=== PATIENT | female | born 1970 | race Caucasian/White ===

== ENCOUNTER 2017-06-17 06:54 | Day surgery (SDC) | payer BC, OTHER ==
[2017-06-17] MEDS ORDERED: LIDOCAINE 2% MDV 20 ML VIAL As Ordered (07:01)
[2017-06-17] MEDS ORDERED: PROPOFOL 200 MG/20 ML VIAL As Ordered (07:01)
[2017-06-17] MEDS: NS 1,000 ML IV (07:08)
== END 2017-06-17 08:20 | disposition home or self-care (01) ==
LOC: M OPP 06:54
DX: R19.4 Change in bowel habit (principal); Z80.0 Family history of malignant neoplasm of digestive organs; D12.3 Benign neoplasm of transverse colon; B00.9 Herpesviral infection, unspecified
CPT/HCPCS: 45380

== ENCOUNTER → 2019-03-20 | Outpatient (CLI) | payer OTHER ==
[~2019-03-20] MED LIST: VITA500T17 PO
--- NOTE | 2019-03-20 10:56 | REPPI ---
INDICATION: T-spine pain PROCEDURE: Plain film study of the cervical spine includes AP lateral and oblique views COMPARISON STUDIES: No prior similar studies FINDINGS: There is [id number] multilevel degenerative disc disease. Vertebral heights and disc heights appear preserved. No fracture or malalignment. The cranial vertebral junction appears unremarkable. On the oblique views, no definite significant foraminal stenosis identified. IMPRESSION: No acute findings or subluxation. No fracture. Essentially normal for age examination. Electronically Signed by Drew Brink MD 03/20/2019 10:46 A
--- NOTE | 2019-03-21 01:59 | REPPI ---
Clinical: thoracic back pain. Technique: AP, lateral, and swimmers views. Findings: Alignment and kyphosis is maintained. Vertebral bodies intact. No acute fracture / compression injury or subluxation. No degenerative changes. Paravertebral soft tissues are normal. Impression: Age-appropriate thoracic spine series. Electronically Signed by Rich Foster MD 03/21/2019 01:50 A
== END ==
LOC: M PLAIMG 09:55
PROVIDERS: ATTEND Physician Assistant
DX: M54.2 Cervicalgia (principal); M54.6 Pain in thoracic spine

== ENCOUNTER → 2020-03-11 | Outpatient (CLI) | payer OTHER ==
--- NOTE | 2020-03-11 23:35 | ECWPNPC ---
PATIENT NAME: GLORIA CORNEJO : 1970 GENDER: FEMALE VISIT DATE: 03/11/2020 DISCHARGE DATE: 03/11/20 0000 VISIT LOCKED DATE TIME: PHYSICIAN: CORNELIUS CROCKER PHYSICIAN PAGER NO: ACTIVE RESOURCE: CORNELIUS CROCKER REASON FOR APPOINTMENT 1. PAIN IN T-SPINE/SCAPULA HISTORY OF PRESENT ILLNESS DEPRESSION SCREENING: PHQ-2 (2015 EDITION) LITTLE INTEREST OR PLEASURE IN DOING THINGS?NOT AT ALL FEELING DOWN, DEPRESSED, OR HOPELESS?NOT AT ALL TOTAL SCORE0 GENERAL: 49-YEAR-OLD FEMALE BEING REFERRED BY [facility], WORKMEN'S COMPENSATION/PRIMARY CARE THROUGH [facility] TO EVALUATE PERSISTENT NECK PAIN AFTER A WORK RELATED INJURY ON 10/07/2018. SHE WAS EMPLOYED THROUGH [employer] AT TIME OF INJURY. STATES SHE WAS RECEIVING INSTRUCTION ON A NEW TRANSPORT VAN AND STEPPED OUT OF VAN AND MISSED STEP FALLING FORWARD ONTO GROUND. AT TIME OF INJURY SHE HAD SEVERE RIGHT KNEE PAIN. 1 MONTH LATER SHE BEGAN TO HAVE CONSTANT PAIN AT THE BASE OF HER NECK. TODAY SHE IS COMPLAINING OF PERSISTENT NECK PAIN. DENIES RADICULAR SYMPTOMS. PAIN IS AGGRAVATED BY LIFTING OR USE OF HER NECK AND ARMS. 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 INITIALLY WAS TREATED WITH MEDICATIONS THAT WERE NOT HELPFUL. LATER ATTENDED PHYSICAL THERAPY IN JUNE 2019 THE PATIENT FELT HELPED FOR A LITTLE WHILE. - - -. FALL RISK SCREENING: SCREENING :ONE FALL WITH INJURY IN THE PAST YEAR STATES SHE "FELL FROM A VAN AT WORK WITH WORSENING PAIN 1-2 MONTHS AFTER FALL". PAIN SCREENING: PATIENT HAS A COMPLAINT OF ACUTE OR CHRONIC PAIN :YES LOCATION OF PAIN:NECK, UPPER BACK INTENSITY OF PAIN (SCALE OF 1 TO 10):3 WHAT DOES YOUR PAIN FEEL LIKE:ACHING, CONTINOUS, INTERMITTENT DURATION:CONTINOUS, CONSTANT, STEADY, RHYTHMIC PAIN INCREASES TO 8/10 WITH ACTIVITIES. PAIN IS INCREASED BY:ACTIVITIES PAIN IS DECREASED BY:OTHERS PHYSICAL THERAPY ASSISTED PAIN SOME. TREATMENT/MEDICATIONS USED TO MANAGE PAIN:OTC PAIN RELIEVERS, NSAIDS, TOPICAL CORTICOSTEROIDS, PHYSICAL THERAPY PAIN HAS INTERFERED WITH THE FOLLOWING:EMPLOYMENT PLAN/GOALS/TREATMENT/INTERVENTION/FOLLOW UP:SEE PLAN NURSING NOTE: - - -. PAIN CENTER INTAKE QUESTIONS: DO YOU HAVE A HISTORY OF MRSA? :NO DO YOU TAKE A BLOOD THINNERS? :NO DO YOU HAVE ANY BLEEDING DISORDERS? :NO ANY NEW NUMBNESS OR WEAKNESS IN YOUR LEGS OR ARMS? :YES PATIENT NOTES INTERMITTENT NUMBNESS IN BOTH ARMS OVER PAST MONTH. ANY PACEMAKER,DEFIBRILLATOR, OR DORSAL COLUMN STIMULATOR? :NO DO YOU HAVE ANY RASHES OR OPEN SORES? :NO ARE YOU ALLERGIC TO IV DYE? :NO ARE YOU DIABETIC? :NO ANY NEW PROBLEMS WITH YOUR MEDICATIONS? :NO HAVE YOU RECEIVED A VACCINE IN THE PAST 30 DAYS? :NO DO YOU PLAN TO RECEIVE A VACCINE IN THE NEXT 21 DAYS? :NO DO YOU NEED ANY PRESCRIPTION? :NO DO YOU TAKE ANY IMMUNOSUPPRESSIVE MEDICATIONS? :NO CURRENT MEDICATIONS TAKING FISH OIL 1000 MG CAPSULE DIRECTED ORALLY ONCE IN A WHILE TAKING FLAX SEED OIL 1000 MG CAPSULE DIRECTED ORALLY ONCE IN A WHILE TAKING VITAMIN D 1000 UNIT CAPSULE 1 CAPSULE ORALLY ONCE A DAY TAKING TRAMADOL HCL 50 MG TABLET 1 TABLET ORALLY THREE TIMES A DAY NEEDEDFOR A FLARE, NOTES: NO LONGER TAKING TAKING VALTREX 500 MG TABLET 1 TABLET ORALLY ONCE A DAY PRN, NOTES: NEEDED TAKING BIOTIN 1 MG CAPSULE ORALLY DAILY TAKING PHYSICAL THERAPY EVALUATE AND TREAT PHYSICAL THERAPY MECHANICAL EVAL & TX PAIN IN T-SPINE, M54.6 3 X/WK X, NOTES: NOT IN LAST 4-5 MOS MEDICATION LIST REVIEWED AND RECONCILED WITH THE PATIENT PAST MEDICAL HISTORY FAMILY HISTORY COLON CANCER, FATHER ALLERGIES N.K.D.A. SURGICAL HISTORY 11/2005 TONSILLECTOMY CHILD TUBAL LIGATION COLONOSCOPY 5 YEAR FOLLOWUP 06/17/17 FAMILY HISTORY FATHER: 82 YRS, COLON CANCER, DIAGNOSED WITH UNSPECIFIED HEART DISEASE, UNSPECIFIED CEREBRAL ARTERY OCCLUSION WITH CEREBRAL INFARCTION, OTHER SPECIFIED CONDITIONS INFLUENCING HEALTH STATUS MOTHER: ALIVE 76 YRS, STATES MOM DOSEN'T GO TO DOCTORS PATERNAL GRAND FATHER: PATERNAL GRAND MOTHER: MATERNAL GRAND FATHER: MATERNAL GRAND MOTHER: 4 BROTHER(S) , 3 SISTER(S) - HEALTHY. 1 SON(S) , 1 DAUGHTER(S) - HEALTHY. SOCIAL HISTORY GENERAL: TOBACCO USE ARE YOU A:NONSMOKER NEVER SMOKER LATEX QUESTIONNAIRE LATEX ALLERGY : HAVE YOU EVER DEVELOPED ANY TYPE OF REACTION AFTER HANDLING LATEX PRODUCTS SUCH RUBBER GLOVES, CONDOMS, DIAPHRAGMS, BALLOONS, SOCKS, OR UNDERWEAR?NO LATEX ALLERGY : HAVE YOU EVER DEVELOPED ANY TYPE OF REACTION DURING OR AFTER DENTAL APPOINTMENT, VAGINAL/RECTAL EXAMINATION, SURGICAL PROCEDURE, OR ANY OTHER EXPOSURE?NO LATEX RISK : HAVE YOU EVER HAD ANY DIFFICULTY BREATHING OR HIVES AFTER EATING OR HANDLING ANY FRUITS, OR VEGETABLES; SUCH KIWI, BANANAS, STONE FRUITS, OR CHESTNUTSNO LATEX RISK : DO YOU HAVE A PREVIOUS PERSONAL HISTORY OF MORE THAN NINE SURGERIES, SPINA BIFIDA, OR REPEATED CATHERIZATIONS? NO LATEX RISK : ARE YOU FREQUENTLY EXPOSED TO LATEX PRODUCTS IN YOUR OCCUPATION?NO DATE ASKED : 03/06/2020 LUNG CANCER SCREENING SMOKING STATUS:NON SMOKER BMI CARE GOAL FOLLOW-UP BELOW NORMAL BMI FOLLOW-UPDIETARY EDUCATION FOR WEIGHT GAIN ALCOHOL SCREENING DID YOU HAVE A DRINK CONTAINING ALCOHOL IN THE PAST YEAR?YES HOW MANY DRINKS DID YOU HAVE ON A TYPICAL DAY WHEN YOU WERE DRINKING IN THE PAST YEAR?5 OR 6 (2 POINTS) HOW OFTEN DID YOU HAVE A DRINK CONTAINING ALCOHOL IN THE PAST YEAR?TWO TO FOUR TIMES A MONTH (2 POINTS) POINTS4 INTERPRETATIONPOSITIVE RECREATIONAL DRUG USE DENIES. CAFFEINE 2-5/DAY. SEXUAL HX HAD SEX IN THE LAST 12 MONTHS (VAGINAL, ORAL, OR ANAL)?YES WITHMEN ONLY USE PROTECTION?YES HOW OFTEN?0% HAVE YOU EVER HAD AN STD?YES HERPES?YES HIV / HEP-C SCREENING HIV TEST OFFERED TO PATIENT:YES DATE OFFERED:03/18/2017 TEST ACCEPTED:NO HEP-C TEST OFFERED TO PATIENT:YES DATE OFFERED:03/18/2017 REASON:PATIENT DECLINED TEST ACCEPTED:NO REASON:PATIENT DECLINED WORSHIP NO UATSDIN BELIEFS THAT WOULD IMPACT HEALTH CARE. LANGUAGE LANGUAGES SPOKEN:CHILEAN EDUCATION LEVEL OF EDUCATION:FINISHED HIGH SCHOOL SOME COLLEGE LEARNING BARRIERS / SPECIAL NEEDS CHANGE FROM LAST VISIT?NO BARRIERS TO LEARNING?NO HEARING IMPAIRED?NO VISION IMPAIRED?NO COGNITIVELY IMPAIRED?NO READINESS TO LEARN?YES LEARNING PREFERENCES?NO LEARNING CAPABILITIES PRESENT?YES EMOTIONAL BARRIERS?NO DOMESTIC VIOLENCE STATUS:PARTNERED DOES THE PATIENT DIVULGE THAT THE PARTNER HIT THEM?NO DOES THE PATIENT DIVULGE THAT THE PARTNER HITS THE CHILDREN IN THE HOUSEHOLD?NO DOES THE PATIENT CONSIDER THE PARTNER ABUSIVE?NO HAS THE PATIENT EVER BEEN IN A SITUATION INVOLVING DOMESTIC VIOLENCE?NO HAS THE PATIETN EVER BEEN INJURED, HOMEBOUND, OR HOSPITALIZED DUE TO AN ALTERCATION WITH SIGNIFICANT OTHER?NO DO YOU FEEL SAFE IN YOUR ENVIRONMENT?NO 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 DIET: HEALTHY, WELL ROUNDED. EXERCISE: NO REGULAR EXERCISE. MARITAL STATUS: , HAS SIGNIFICANT OTHER ROMAINE CONNOLLY ([employer].).. OTHERS AT HOME: CHILDREN 2. PAIN CLINIC PFS, CLERGY, PUBLIC HEALTH REFERRALS HAS THE PATIENT BEEN EDUCATED REGARDING HIS/HER PLAN OF CARE?YES HAS THE PATIENT BEEN EDUCATED REGARDING PAIN, THE RISK FOR PAIN, THE IMPORTANCE OF EFFECTIVE PAIN MANAGEMENT, AND THE PAIN ASSESSMENT PROCESS?YES HOUSING: OWNS HOME. ADVANCE DIRECTIVE ADVANCE DIRECTIVE DISCUSSED WITH PATIENT:YES PATIENT DENIES HAVING ADVANCED DIRECTIVES OR NEED FOR ASSISTANCE WITH THEM. HOSPITALIZATION/MAJOR DIAGNOSTIC PROCEDURE VAGINAL DELIVERY BABY BOY HIGH RISK 07/28/1997 - BOUBACAR HIGH RISK 11/24/2005 REVIEW OF SYSTEMS CONSTITUTIONAL: ANY RECENT FEVER NO . CHILLS NO . WEIGHT CHANGE OF UNKNOWN REASONS NO . GASTROENTEROLOGY: NEW UNEXPLAINABLE CHANGES IN BOWEL CONTROL NO . CONSTIPATION NO . GENITOURINARY: ANY NEW CHANGE IN BLADDER CONTROL? NO . NEUROLOGY: NEW ONSET DIZZINESS OR NEUROLOGICAL CHANGES NOT MENTIONED NO . NEW NUMBNESS OR PAIN PATTERNS NOT MENTIONED AND PERTINENT TO TODAY'S VISIT NO . CARDIOLOGY: NEW CHEST PRESSURE NO . NEW CHEST PAIN NO . RESPIRATORY: UNEXPLAINABLE COUGH NO . NEW SHORTNESS OF BREATH NO . VITAL SIGNS WT 173.6 LBS, HT 63 IN, BMI 30.75 INDEX, BP 120/60 MM HG, HR 73 /MIN, RR 18 /MIN, TEMP 97.5 F, OXYGEN SAT % 100%, SAFE IN ENV? (Y/N) YES, NA INITIALS AW 0853, REVIEWED BY: FERNANDA GREENWOOD RN BSN. EXAMINATION GENERAL EXAMINATION: GENERAL AWAKE,ALERT ,PLEAASANT . PSYCH AFFECT NORMAL . FACE:UNREMARKABLE. NECK:NO LYMPHADENOPATHY, SUPPLE, NO THYROMEGALLY,. LUNGS: LUNG DINH ARE CLEAR TO AUSCULTATION BILATERALLY. GOOD MOVEMENT OF AIR . HEART: S1, S2 IN A REGULAR RATE AND RHYTHM. NO SIGNIFICANT MURMURS, RUBS OR GALLOPS NOTED . MUSCULOSKELETAL:NORMAL RANGE OF MOTION/MST 5/5 UPPER/LOWE EXTREMITIES. CERVICAL: TRIGGER POINTS: CERVICAL AND TRAPEZIUS BILAT..PAIN IS AGGREVATED WITH ROJM NECK. DIAGNOSTIC TESTS REVIEWEDCERVICAL X-RAY 03/20/2019. ASSESSMENTS MYALGIA OF MUSCLE OF NECK - M79.18 (PRIMARY) TREATMENT MYALGIA OF MUSCLE OF NECK NOTES: WORKMEN'S COMP REQUEST TRIGGER POINT INJECTIONS BILATERAL NECK WORKMEN'S COMP REQUEST PHYSICAL THERAPY 2 TIMES A WEEK X6 WEEKS FOR MYOFASCIAL RELEASE/MUSCLES OF THE NECK. 03/11/20 0909 PATIENT EDUCATED ON TRIGGER POINT INJECTIONS, GIVEN PRE PROCEDURE INSTRUCTIONS AND HANDOUT ON TRIGGER POINT INJECTIONS, PATIENT VERBALIZED UNDERSTANDING, NO QUESTIONS OR CONCERNS AT THIS TIME. PRATIK GREENWOOD RN BSN. REFERRAL TO:PHYSICAL THERAPIST REASON:2XWK X 6 WKS,RANGE OF MOTION,MYOFASCIAL RELEASE,MASSAGE OTHERS NOTES: PAT COMPLETED 03/06/20 Abhinav JUAN RN. PROCEDURES PN WORKMANS' COMP OPINION IN YOUR OPINION, WAS THE INCIDENT THAT THE PATIENT DESCRIBED THE COMPETENT MEDICAL CAUSE OF THIS INJURY/ILLNESS? YES ARE THE PATIENT'S COMPLAINTS CONSISTENT WITH HIS/HER HISTORY OF THE INJURY/ILLNESS? YES IS THE PATIENT'S HISTORY OF THE INJURY/ILLNESS CONSISTENT WITH YOUR OBJECTIVE FINDING? YES WHAT IS THE PERCENTAGE OF TEMPORARY IMPAIRMENT? MODERATE TO MARKED = 66.7% IS THE PATIENT WORKING? YES DOCTOR ON SITE: TATY LINARES MD PROCEDURE CODES FA211 ESTABILISHED PATIENT [facility] CHARGE DISPOSITION & COMMUNICATION FOLLOW UP POST TRIGGER POINT INJECTION (REASON: WORKMEN'S COMP REQUEST TRIGGER POINT INJECTIONS BILATERAL NECK) ELECTRONICALLY SIGNED BY JAYLEN STANLEY ON 03/11/2020 AT 03:15 PM EST DISCLAIMER : THIS IS A VISIT SUMMARY EXTRACTED FROM THE [employer] CHART. IT IS NOT A COPY OF THE [employer] PROGRESS NOTE. MARK
== END ==
LOC: M PAIN 08:30
PROVIDERS: ATTEND Nurse Practitioner Family
DX: M79.18 Myalgia, other site (principal); Z79.899 Other long term (current) drug therapy

== ENCOUNTER → 2020-03-27 | Outpatient (CLI) | payer BC, OTHER | LOC: M LABSMTC 14:15 | PROVIDERS: ATTEND Family Medicine | DX: Z20.828 Contact with and (suspected) exposure to other viral communicable diseases (principal) ==

== ENCOUNTER → 2022-10-29 | Outpatient (CLI) | payer BC ==
[~2022-10-29] MED LIST changes: +MEDR4PAK PO
== END ==
LOC: M PLAIMG 13:39
PROVIDERS: ATTEND Student in an Organized Health Care Education/Training Program
DX: M54.42 Lumbago with sciatica, left side (principal)

== ENCOUNTER 2022-10-30 11:54 | Emergency (ER) | payer BC ==
[~2022-10-30] VITALS: Ht 162.6 cm; Wt 76.8 kg
[~2022-10-30 11:54] MED LIST changes: -MEDR4PAK PO
[2022-10-30] MEDS ORDERED: MEDR4PAK PO (16:00)
[2022-10-30] MEDS ORDERED: KETOROLAC 60MG 2ML VIAL IM ONE (18:00)
[2022-10-30] MEDS ORDERED: predniSONE 20 MG TAB PO ONE (18:00)
[2022-10-30 18:09] VITALS: BP 118/70; TEMP 96.1; O2SAT 97
== END 2022-10-30 18:40 | disposition home or self-care (01) ==
LOC: M ED 11:54
DX: M54.30 Sciatica, unspecified side (principal); M54.50 Low back pain, unspecified; M51.86 Other intervertebral disc disorders, lumbar region
CPT/HCPCS: 72131; 96372; 99283; J1885; J7512

== ENCOUNTER 2023-11-17 14:53 | Emergency (ER) | payer BC, MEDICAID, OTHER, SELFPAY ==
[~2023-11-17] VITALS: Ht 162.6 cm; Wt 79.3 kg
[~2023-11-17 14:53] MED LIST changes: +MEDR4PAK PO
[2023-11-17] MEDS ORDERED: TRAM50TA2 PO (17:50)
[2023-11-17 18:37] VITALS: BP 140/73; TEMP 97.8; O2SAT 100
[2023-11-17] MEDS: traMADol 50 MG TAB PO ONE (18:37)
== END 2023-11-17 18:42 | disposition home or self-care (01) ==
LOC: M ED 14:53
DX: S52.572A Other intraarticular fracture of lower end of left radius, initial encounter for closed fracture (principal); Y92.9 Unspecified place or not applicable; Y93.9 Activity, unspecified; Y99.0 Civilian activity done for income or pay; W01.0XXA Fall on same level from slipping, tripping and stumbling without subsequent striking against object, initial encounter; Z79.899 Other long term (current) drug therapy

== ENCOUNTER → 2023-11-18 | Outpatient (CLI) | payer OTHER ==
[~2023-11-18] MED LIST changes: +TRAM50TA2 PO
== END ==
LOC: M PLAIMG 10:42
PROVIDERS: ATTEND Orthopaedic Surgery Hand Surgery
DX: S52.502A Unspecified fracture of the lower end of left radius, initial encounter for closed fracture (principal); X58.XXXA Exposure to other specified factors, initial encounter; Y92.9 Unspecified place or not applicable; Y93.9 Activity, unspecified; Y99.9 Unspecified external cause status

== ENCOUNTER → 2023-12-30 | Outpatient (CLI) | payer OTHER, BC | LOC: M SOG 07:25 | PROVIDERS: ATTEND Physician Assistant | DX: S52.572A Other intraarticular fracture of lower end of left radius, initial encounter for closed fracture (principal); X58.XXXA Exposure to other specified factors, initial encounter; Y92.9 Unspecified place or not applicable; Y93.9 Activity, unspecified; Y99.9 Unspecified external cause status ==

== ENCOUNTER → 2024-01-06 | Outpatient (CLI) | payer OTHER, BC | LOC: M SOG 14:13 | PROVIDERS: ATTEND Orthopaedic Surgery Hand Surgery | DX: S52.572A Other intraarticular fracture of lower end of left radius, initial encounter for closed fracture (principal); W18.30XA Fall on same level, unspecified, initial encounter; Y92.009 Unspecified place in unspecified non-institutional (private) residence as the place of occurrence of the external cause ==

== ENCOUNTER → 2024-01-20 | Outpatient (CLI) | payer OTHER, BC | LOC: M SOG 07:52 | PROVIDERS: ATTEND Physician Assistant | DX: S52.572D Other intraarticular fracture of lower end of left radius, subsequent encounter for closed fracture with routine healing (principal) ==